=== PATIENT | male | born 1975 | race Caucasian/White ===

== ENCOUNTER → 2017-07-29 | Outpatient (CLI) | payer BC ==
[~2017-07-29] MED LIST: FISH OIL1000 MG PO; SYNTHROID0.088 MG/T PO; TOPROL XL 25MG25 MG PO
== END ==
LOC: COL.RAD 07:18
DX: M48.061 Spinal stenosis, lumbar region without neurogenic claudication (principal); M51.26 Other intervertebral disc displacement, lumbar region

== ENCOUNTER 2017-08-20 07:32 | Outpatient (CLI) | payer BC ==
[2017-08-20] VITALS (8 sets, daily range): BP systolic 116–150; BP diastolic 81–99; PULSE 58–93
[~2017-08-20] VITALS: Ht 182.9 cm; Wt 76.5 kg
== END 2017-08-20 11:18 | disposition home or self-care (01) ==
LOC: COL.RAD 07:32
DX: M51.26 Other intervertebral disc displacement, lumbar region (principal); R20.0 Anesthesia of skin; M79.605 Pain in left leg
CPT/HCPCS: Q9965

== ENCOUNTER → 2022-02-01 | Outpatient (CLI) | payer BC | LOC: COL.RAD 12:01 | DX: M50.322 Other cervical disc degeneration at C5-C6 level (principal) ==